=== PATIENT | male | born 1955 | race Caucasian/White ===

== ENCOUNTER 2020-07-10 17:01 | Emergency (ER) | payer OTHER ==
[~2020-07-10] VITALS: Ht 190.5 cm; Wt 80.0 kg
[~2020-07-10 17:01] MED LIST: ACET325T14 PO; EFAV1TAB PO; GABA100C PO; OMEP-110 PO; TRAZ-175 PO
[2020-07-10] MEDS ORDERED: MORPHINE SULFATE 4 MG/ML, 1ML ONE ×2 (17:42→19:10)
[2020-07-10] MEDS ORDERED: ONDANSETRON ODT 4 MG ONE (17:42)
[2020-07-10] MEDS ORDERED: PLEASE ENTER ALLERGIES MC SCH (18:00)
[2020-07-10] MEDS: MORPHINE SULFATE 4 MG/ML, 1ML IVPush PRN ×2 (18:04→19:31)
[2020-07-10] MEDS ORDERED: ONDANSETRON ODT 4 MG PO ONE (18:30)
[2020-07-10] MEDS ORDERED: SODIUM CHLORIDE FLUSH 10ML SYR IVF ONE (18:30)
[2020-07-10 18:31] LABS: BASOPHILS % (AUTO) 1 % (0-1); EOSINOPHILS % (AUTO) 2 % (1-7); LYMPHOCYTES % (AUTO) 26 % (22-44); MEAN CORPUSCULAR HGB CONC 32.3 g/dL (33.2-36.2); MEAN PLATELET VOLUME 8.5 fL (7.4-10.4); MONOCYTES % (AUTO) 7 % (2-9); NEUTROPHILS % (AUTO) 64 % (42-75); PLATELET COUNT 164 x10^3/uL (130-400); RED BLOOD COUNT 5.89 x10^6/uL (4.38-5.82); RED CELL DISTRIBUTION WIDTH 25.7 % (9.4-14.8)
[2020-07-10 18:38] LABS: INTERNATIONAL NORMALIZED RATIO 0.97 (0.93-1.1); PROTHROMBIN TIME 10.3 Seconds (9.6-11.5)
[2020-07-10 18:40] LABS: ANION GAP 4 mmol/L (5-15); CALCIUM 11.1 mg/dL (8.5-10.1); CHLORIDE 109 mmol/L (98-107); CREATININE 1.05 mg/dL (0.7-1.3)
[2020-07-10 19:31] LABS: MD SCAN
[2020-07-10 20:24] VITALS: BP 114/57
== END 2020-07-10 20:48 | disposition home or self-care (01) ==
LOC: ED 19:47
DX: S72.114A Nondisplaced fracture of greater trochanter of right femur, initial encounter for closed fracture (principal); W01.0XXA Fall on same level from slipping, tripping and stumbling without subsequent striking against object, initial encounter; Y93.89 Activity, other specified; Y92.89 Other specified places as the place of occurrence of the external cause; Y99.8 Other external cause status
CPT/HCPCS: 36415; 73700; 80048; 82040; 85025; 85610; 96374; 96376; 99284; J2270; Q0162